=== PATIENT | male | born 1950 | race Caucasian/White ===

== ENCOUNTER 2019-03-12 06:00 | Outpatient (CLI) | payer OTHER, MEDICARE, MEDICAID, SELFPAY | END 2019-04-11 23:59 | disposition home or self-care (01) | LOC: SST 05-07 15:58 | PROVIDERS: Referring Provider Internal Medicine; Visit Provider Internal Medicine | DX: I69.30 Unspecified sequelae of cerebral infarction (principal) | CPT/HCPCS: 92607; 92608 ==